=== PATIENT | male | born 2005 | race Caucasian/White ===

== ENCOUNTER 2023-04-07 22:52 | Emergency (ER) | payer MEDICAID, SELFPAY ==
[2023-04-07 22:53] VITALS: BP 166/72; PULSE 118; RESP 18; TEMP 37.2; O2SAT 99
--- NOTE | 2023-04-07 23:10 | CT_ITS ---
EXAM: CT HEAD WITHOUT INTRAVENOUS CONTRAST CLINICAL INDICATION: First-time seizure TECHNIQUE: Multiple axial images were obtained of the head without intravenous contrast. This CT exam was performed using one or more of the following dose reduction techniques: automated exposure control, adjustment of the mA and/or kV according to patient size, and/or use of iterative reconstruction technique. RADIATION DOSE: CTDIvol = 44.99 mGy, DLP = 863.60 mGy-cm COMPARISON: No relevant prior studies available. FINDINGS: BRAIN AND EXTRA-AXIAL SPACES: Unremarkable. No intra- or extra-axial hemorrhage. No evidence of acute infarct. No intracranial mass or mass effect. There is preservation of the castillo/white matter interface. Posterior fossa structures are unremarkable. Ventricles are appropriate for age. No hydrocephalus. Basal cisterns are patent. BONES/JOINTS: Unremarkable. No discrete lytic or blastic abnormalities. SINUSES: Unremarkable as visualized. Clear. MASTOID AIR CELLS: Unremarkable. Clear. ORBITS: Visualized globes, extraocular muscles, optic nerves and retrobulbar fat appear unremarkable. CT/Brain/Head without Contrast IMPRESSION: Negative head/brain CT without intravenous contrast. Electronically Signed: Iván Nunez MD at 23:36 EDT ,
[2023-04-07 23:24] LABS: Absolute Lymphocyte Count 2.39 X10^3/uL (0.83-4.51); Absolute Neutrophil Count 8.1 X10^3/uL (2.0-7.7); Basophil# 0.11 X10^3/uL; Basophil% 0.9 % (0-1); Eosinophil# 0.09 X10^3/uL; Eosinophils% 0.8 % (0-5); Hematocrit 45.2 % (40-54); Hemoglobin 15.1 g/dL (13.0-16.5); Lymphocyte # 2.39 X10^3/ul (0.83-4.51); Lymphocyte % 20.6 % (19-41); Mean Corp Hgb Conc 33.4 g/dL (32-36); Mean Corpuscular Volume 80.9 fL (80-94); Mean Platelet Vol. 10.8 fl (6.2-12.0); Monocyte# 0.87 X10^3/uL; Monocyte% 7.5 % (0-10); NRBC Flagged by Analyzer 0 % (0-5); Neutrophil # 8.09 X10^3/uL (2.7-7.7); Neutrophil % 69.6 % (47-70); Platelet Count 266 K/mm3 (150-450); RBC Distribution Width CV 12.5 % (11.6-14.6); RBC Distribution Width SD 36.2 fl (35.1-43.9); Red Blood Count 5.59 M/mm3 (4.6-6.2); White Blood Count 11.6 K/mm3 (4.4-11.0)
[2023-04-07 23:43] LABS: ALB/GLOB Ratio 1.1 RATIO (0.9-2.4); AST(SGOT) 12 U/L (15-37); Alanine Aminotransfer ALT/SGPT 28 U/L (16-61); Albumin, Serum 4.1 g/dL (3.2-5.0); Alkaline Phosphatase 106 U/L (45-117); Anion Gap 12 (5-15); BUN 12 mg/dL (7-18); BUN/Creat Ratio 9.3 RATIO (10-20); Calcium,Total 8.8 mg/dL (8.5-10.1); Chloride 107 mmol/L (98-107); Creatinine, Serum 1.29 mg/dL (0.70-1.30); EST Glomerular Filtration Rate 76 mL/min (>60); Est Glom Filt Rate - Afr Amer 92 mL/min (>60); Globulin 3.9 g/dL (2.2-4.2); Glucose 107 mg/dL (74-106); Potassium 3.6 mmol/L (3.5-5.1); Sodium Level 139 mmol/L (136-145)
[2023-04-07 23:52] VITALS: BP 129/64; PULSE 89; RESP 16; O2SAT 100
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
[2023-04-08 01:22] LABS: Amphetamine Urine VISTA NEGATIVE (<1000 ng/mL); Barbiturate Urine VISTA NEGATIVE (< 200 ng/mL); Benzodiazepine Urine VISTA NEGATIVE (< 200 ng/mL); Cocaine Urine VISTA NEGATIVE (< 300 ng/mL); Ecstacy Urine VISTA NEGATIVE (< 500 ng/mL); Methadone Urine VISTA NEGATIVE (< 300 ng/mL); PCP Urine VISTA NEGATIVE (< 25 ng/mL); THC Urine VISTA NEGATIVE (< 50 ng/mL); Vista UDS pH Range 5
[2023-04-08 02:16] VITALS: BP 129/60; PULSE 87; RESP 17; O2SAT 98
== END 2023-04-08 02:17 | disposition home or self-care (01) ==
PROVIDERS: Emergency Provider Emergency Medicine; PCP Pediatrics; Visit Provider Emergency Medicine
DX: R56.9 Unspecified convulsions (principal); S00.81XA Abrasion of other part of head, initial encounter; R41.0 Disorientation, unspecified; X58.XXXA Exposure to other specified factors, initial encounter
CPT/HCPCS: 70450; 80053; 80307; 85025; 99285; A4216

== ENCOUNTER 2023-05-06 13:21 | Emergency (ER) | payer MEDICAID, SELFPAY ==
[2023-05-06 13:22] VITALS: BP 115/64; PULSE 129; RESP 24; TEMP 37.5; O2SAT 99; BMI 37.8
[2023-05-06 13:38] LABS: Absolute Lymphocyte Count 4.73 X10^3/uL (0.83-4.51); Absolute Neutrophil Count 7.1 X10^3/uL (2.0-7.7); Basophil# 0.17 X10^3/uL; Basophil% 1.3 % (0-1); Eosinophil# 0.13 X10^3/uL; Hematocrit 54.1 % (40-54); Hemoglobin 16.9 g/dL (13.0-16.5); Lymphocyte # 4.73 X10^3/ul (0.83-4.51); Lymphocyte % 34.8 % (19-41); Mean Corp Hgb Conc 31.2 g/dL (32-36); Mean Corpuscular Hgb 27.1 pg (27.0-32.0); Mean Corpuscular Volume 86.7 fL (80-94); Mean Platelet Vol. 11.1 fl (6.2-12.0); Monocyte# 1.34 X10^3/uL; Monocyte% 9.9 % (0-10); NRBC Flagged by Analyzer 0 % (0-5); Neutrophil # 7.14 X10^3/uL (2.7-7.7); Neutrophil % 52.4 % (47-70); Platelet Count 339 K/mm3 (150-450); RBC Distribution Width CV 12.9 % (11.6-14.6); Red Blood Count 6.24 M/mm3 (4.6-6.2); White Blood Count 13.6 K/mm3 (4.4-11.0)
[2023-05-06] MEDS: Ondansetron 4 MG/2 ML Vial IV (13:46)
[2023-05-06] MEDS: 0.9% Normal Saline (1000mL) 1,000 ML 1000 ML IV (13:46)
--- NOTE | 2023-05-06 13:49 | RAD_ITS ---
HISTORY: Dyspnea. TECHNIQUE: XR Chest 1 View. COMPARISON: None. FINDINGS: CARDIOMEDIASTINAL BORDERS: Cardiac silhouette within normal limits in size. Mediastinal contour unremarkable. LUNGS: Radiographically clear. PLEURA: No pleural effusion or pneumothorax seen. OSSEOUS STRUCTURES: Unremarkable. RAD/Chest 1 View (Portable) IMPRESSION: No acute cardiopulmonary process identified. Electronically Signed: Leana Marie MD at 14:31 EDT ,
[2023-05-06 13:52] LABS: Anion Gap 19 (5-15); BUN 9 mg/dL (7-18); BUN/Creat Ratio 7.6 RATIO (10-20); Calcium,Total 9.7 mg/dL (8.5-10.1); Chloride 111 mmol/L (98-107); Creatinine, Serum 1.18 mg/dL (0.70-1.30); EST Glomerular Filtration Rate 84 mL/min (>60); Est Glom Filt Rate - Afr Amer 102 mL/min (>60); Estimated Creatinine Clearance 97.42 ml/min; Glucose 113 mg/dL (74-106); Potassium 3.7 mmol/L (3.5-5.1); Sodium Level 145 mmol/L (136-145)
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
[2023-05-06 14:03] VITALS: O2SAT 92
[2023-05-06 15:00] VITALS: BP 124/66; PULSE 89; RESP 22; O2SAT 98
[2023-05-06 15:56] VITALS: BP 127/65; PULSE 92; RESP 18; TEMP 36.1
== END 2023-05-06 15:57 | disposition home or self-care (01) ==
PROVIDERS: Emergency Provider Emergency Medicine; PCP Pediatrics; Visit Provider Emergency Medicine
DX: G40.409 Other generalized epilepsy and epileptic syndromes, not intractable, without status epilepticus (principal); E66.9 Obesity, unspecified
CPT/HCPCS: 71045; 80048; 85025; 96361; 96374; 99283; J7030; A4216; J2405

== ENCOUNTER 2024-10-02 21:02 | Emergency (ER) | payer OTHER, SELFPAY ==
[2024-10-02 21:05] VITALS: BP 144/74; PULSE 112; RESP 18; TEMP 36.5; O2SAT 96; BMI 30.2
--- NOTE | 2024-10-02 22:02 | EX.ED.DYSGE1 ---
HPI History of Present Illness Chief Complaint: Seizure Detail of Chief Complaint: Seizure today at work. Denies any injuries. Informant: patient and parent Onset/Context/Timing Onset: Today Context: Sudden Onset Timing: Intermittent Current Severity: Gone Maximum Severity: Moderate Narrative Narrative: 19-year-old male history of seizure disorders had seizures for the last 2 years. His last seizure was in April 2023. He is on antiseizure medication. He was at work tonight he was learning a new job at work. And he had reportedly a tonic-clonic seizure and bit the right side of his tongue. Does not believe he fell he was seated when it occurred. Does not have any complaints of any injuries. Currently is awake and alert. He is not acting postictal and both his parents are sitting at bedside. Prior similar symptoms: Yes Recent Illness/Hospitalization: No PFSH PFS Medical History Seizure disorder Home Medications ?Medication ?Instructions ?Recorded ?Last Taken ?Type levetiracetam 500 mg tablet 500 mg PO BID 10/02/24 Unknown History Allergy/AdvReac Type Severity Reaction Status Date / Time No Known Allergies Allergy Verified 10/02/24 21:08 Surgical History Hx of tonsillectomy Social History household members: family Smoking Status: Never smoker alcohol intake: current substance use type: does not use ROS ROS ED ROS Narrative Patient denies any recent illness. Constitutional Constitutional ED: Denies chills or fever(s) Eyes Eyes: Denies blurry vision ENT ENT ED: Denies ear pain Cardiovascular Cardiovascular: Denies chest pain Respiratory/Chest Respiratory/Chest: Denies cough Gastrointestinal Gastrointestinal: Denies abdominal pain Genitourinary Genitourinary ED: Denies dysuria or hematuria Musculoskeletal Musculoskeletal: Denies arthralgias or back pain Integumentary Denies abscess, Abrasions or rash Neurologic Neurologic: Denies headache(s) or paresthesias Psychiatric Psychiatric: Denies anxiety or suicidal ideation Endocrine Endocrinology: Denies cold intolerance Hematologic/Lymphatic Hematologic/Lymphatic: Reports none Allergic/Immunologic Allergic/Immunologic ED: Denies mouth swelling, tongue swelling or urticaria EXAM Physical Exam Narrative Exam Narrative: 19-year-old male sitting upright in bed. Vital signs are stable afebrile. No acute distress. No active seizing. He is not postictal at this time. Both parents are at bedside. H EENT exam pupils round reactive light. No trauma to his face or scalp. Nontender. No hematoma. Right side of his tongue has an abrasion where he bit it but there is no laceration needs to be repaired. There is no active bleeding. Dentition intact. Neck nontender. No lymphadenopathy. No meningismus. Back nontender. Lungs clear. Heart regular rhythm rate about 105 no murmur. Chest wall ribs nontender. Abdomen soft nontender. Moving all 4 extremities. Nontender no deformity. Normal coordinator of evaluation strength. Normal dorsi plantarflexion. Patient awake alert. Answering questions following commands. GCS 15. NIH 0. Const Vital Signs: 10/02/24 21:05 Temperature 97.7 F L Temperature Source Oral Pulse Rate 112 H Respiratory Rate 18 Blood Pressure 144/74 H Blood Pressure Mean 97 Pulse Ox 96 Positive well nourished and well developed; Negative for cachectic, contractures or unkempt General Appearance ED: well developed and NAD; Negative for unkempt, cachectic, contractures, cyanotic, diaphoretic or pallor Nutritional Appearance: Negative for cachectic HEENT Reports moist mucous membranes; Denies dry mucous membranes Negative for trauma or tenderness Mouth ED: No dry mucous membranes Mouth: No dry mucous membranes Eyes PERRL and EOMs intact bilaterally General Eye ED: Negative for pale conjunctiva or scleral icterus Neck no lymphadenopathy, supple and no JVD General: Negative for tenderness Chest Wall inspection of chest normal and palpation of chest normal Resp normal respiratory effort and clear to auscultation bilaterally Effort and Inspection: Negative for retractions Auscultation: Negative for rales, rhonchi, wheezes or diminished lung sounds Cardio regular rhythm, S1 normal heart sound, S2 normal heart sound and no murmurs; Negative for regular rate Palpation: Negative for palpable S3 or palpable S4 Rate: tachycardic; Negative for bradycardia Rhythm: Negative for abnormal rhythm GI normal to inspection, nondistended, normoactive bowel sounds, non-tender, non-distended and no masses Auscultation: normoactive bowel sounds Palpation: soft; Negative for tender, guarding or rebound tenderness present Back/Spine no CVA tenderness General Back: Negative for CVA tenderness Cervical Spine: Negative for cervical spine tenderness Thoracic Spine / Upper Back: Negative for thoracic spinal tenderness or paraspinal muscle tenderness Lumbar Spine / Lower Back: Negative for lumbar spinal tenderness Extremity normal to inspection Neuro oriented x3, CN's II-XII intact bilaterally and no sensory deficits noted Neuro Narrative: Awake alert oriented. Currently not postictal. Acting appropriately. Normal neurologic exam. Sensorium / Orientation: alert; Negative for orientation impaired, lethargic or stuporous Motor Exam: strength 5/5 throughout; Negative for general weakness or strength abnormal Psych mental status grossly normal Appearance: Negative for unkempt Attitude: No agitated Mood & Affect: Negative for depressed, anxious or tearful Skin no rashes or lesions noted, no wounds and skin turgor normal General Skin Exam: elasticity normal; Negative for jaundice or pallor Lesions: No lesion noted Rashes: No rashes noted Trauma: Negative for abrasion Wounds: Negative for wounds noted MDM MDM MDM Narrative Medical decision making narrative: 19-year-old male seizure disorder on antiseizure medications and his first seizure tonight from about a year and a half. His last seizure was April 2023. Exam is benign other than he has a bite nadine on the right side of his tongue with there is no laceration needs to be repaired. He will be observed. I do not think he needs any testing. He had a CT and labs not that long ago. Repeat hand patient is doing well at 10:36 PM. I do both he and his parents. He is comfortable being discharged to home. They know he is not to be driving at this time since he had a recurrent seizure. He will follow-up with his neurologist. He has his seizure medication at home which he has been taking. Discharge Plan Triage Chief Complaint: Seizure ED Provider: Te Godinez Dx/Rx/DC Orders Clinical Impression: Seizure, Hx of seizure disorder, Open wound of tongue due to bite Instructions: ED Seizure, Recurrent (Adult) Prescriptions: No Action levetiracetam 500 mg tablet 500 mg PO BID Primary Care Provider: Care Physician,No Primary Referrals: Care Physician,No Primary [Primary Care Provider] - Activity Restrictions/Additional Instructions: Take your seizure medications as prescribed. Follow-up with your neurologist. I would not drive at this time to you have been cleared again by your neurologist. Due to the risk to yourself or others. Print Language: [place] Disposition Disposition: Home, Self Care
[2024-10-02 22:39] VITALS: BP 129/71; PULSE 70; RESP 18; TEMP 36.6; O2SAT 98
== END 2024-10-02 22:48 | disposition home or self-care (01) ==
PROVIDERS: Emergency Provider Emergency Medicine; Visit Provider Emergency Medicine
DX: G40.909 Epilepsy, unspecified, not intractable, without status epilepticus (principal); R29.700 NIHSS score 0; Z79.899 Other long term (current) drug therapy; S01.532A Puncture wound without foreign body of oral cavity, initial encounter; W26.8XXA Contact with other sharp object(s), not elsewhere classified, initial encounter
CPT/HCPCS: 99284; A4216